=== PATIENT | male | born 1970 | race African-American/Black ===

== ENCOUNTER 2020-03-04 03:15 | Emergency (ER) | payer BC ==
[~2020-03-04] VITALS: Ht 172.7 cm; Wt 127.0 kg
--- NOTE | 2020-03-04 03:15 | NUR ---
WALTER PATINO, PREBOOK. TAKEN TO CHAIR A
[2020-03-04 03:17] VITALS: BP 159/95
[2020-03-04 03:31] VITALS: BP 151/84
--- NOTE | 2020-03-04 03:36 | NUR ---
Patient discharged with v/s stable. Written and verbal after care instructions given and explained. Patient verbalized understanding. Ambulatory with steady gait. All questions addressed prior to discharge. Advised to follow up with PMD. Bld alcohol widrawal test done by the laborer yard. Pt is medically cleared and ok to book per Dr Duncan order. Pt d/c accompanied by police judge.
== END 2020-03-04 03:31 ==
LOC: MED 03:15
DX: Z04.1 Encounter for examination and observation following transport accident (principal); Z02.89 Encounter for other administrative examinations
CPT/HCPCS: 99283